=== PATIENT | male | born 1980 | race Caucasian/White ===

== ENCOUNTER 2017-01-01 00:10 | Emergency (ER) | payer OTHER ==
[~2017-01-01] VITALS: Ht 180.3 cm; Wt 93.5 kg
[~2017-01-01 00:10] MED LIST: MOTRIN600 MG PO; MOTRIN800 MG PO
[2017-01-01] MEDS ORDERED: PERCOCET 5/31 TABLET PO (01:36)
[2017-01-01 02:05] VITALS: BP 162/95
== END 2017-01-01 02:05 | disposition home or self-care (01) ==
LOC: EME 00:10 → EXP 00:10
PROC: 2W39X1Z Immobilization of Left Upper Extremity using Splint (ICD-10-PCS; principal; 2017-01-01)
DX: S42.292A Other displaced fracture of upper end of left humerus, initial encounter for closed fracture (principal); W18.39XA Other fall on same level, initial encounter; Y93.64 Activity, baseball; F17.200 Nicotine dependence, unspecified, uncomplicated
CPT/HCPCS: 99281; 99284; J1170